=== PATIENT | female | born 1960 | race Caucasian/White ===

== ENCOUNTER 2016-11-15 08:31 | Day surgery (SDC) | payer OTHER ==
[~2016-11-15] VITALS: Ht 167.6 cm; Wt 151.0 kg
[~2016-11-15 08:31] MED LIST: ALPRAZOLAM0.5 MG PO; ALPRAZOLAM1 MG PO; ATORVASTATIN CA10 MG PO; BUPROPION XL300 MG PO; CARVEDILOL3.125 MG PO; CELEBREX200 MG PO; CELECOXIB200 MG PO; ENDOCET 5-3251 EACH PO; FERROUS SULFAT325 MG PO; FLONASE16 G1 BOTH NARES; HYZAAR 100-21 TABLET PO; LEVAQUIN750 MG PO; LIPITOR10 MG PO; LOSARTAN-HCTZ1 EAC1 PO; LOVENOX40 MG/0.4 SC; MELOXICAM15 MG PO; METFORMIN HCL1000 MG PO; METFORMIN HCL500 MG PO; NORVASC2.5 MG PO; OMEPRAZOLE20 MG PO; OMEPRAZOLE40 M1 PO; PAROXETINE HCL40 MG PO; PAXIL40 MG PO; PRILOSEC40 MG PO; PROPRANOLOL HCL60 M1 PO; SENNA PLUS TAB1 EACH PO; ULTRAM50 MG PO; VOLTAREN 1% GE100 GM TP; XANAX0.5 MG PO
[2016-11-15 09:45] LABS: POINT-OF-CARE METER ID UU13113696
[2016-11-15 15:47] LABS: POINT-OF-CARE METER ID UU13113819
[2016-11-15 20:30] VITALS: BP 135/68
[2016-11-15 23:40] VITALS: BP 126/57
[2016-11-16 03:30] VITALS: BP 147/66
[2016-11-16 06:26] LABS: EOSINOPHIL (%) 2.9 % (0-5); EOSINOPHIL COUNT 0.2 K/uL (0-0.3); HEMATOCRIT 33.3 % (36.0-46.0); IMMATURE GRANULOCYTE (%) 0.4 % (0.0-0.7); LYMPHOCYTE COUNT 2.3 K/uL (1.0-2.8); MCH 25.7 PG (29.0-34.0); MCHC 31.2 G/DL (30.0-36.0); MCV 82.2 FL (83-99); MEAN PLAT.VOLUME 9.7 uM^3 (9.5-12.4); MONOCYTE (%) 6.6 % (3-12); MONOCYTE COUNT 0.5 K/uL (0-0.8); NEUTROPHIL (%) 59.9 % (45-76); NEUTROPHIL COUNT 4.6 K/uL (1.8-6.4); PLATELET COUNT 191 K/uL (156-360); RBC DIS.WIDTH-CV 15.6 % (11.8-14.6); RBC DIS.WIDTH-SD 46.7 % (39-53); RED BLOOD COUNT 4.05 M/uL (3.80-5.20); WHITE BLOOD COUNT 7.6 K/uL (4.1-10.2)
[2016-11-16 06:51] LABS: ANION GAP 8 MEQ/L (2-14); CHLORIDE 101 MEQ/L (99-109); GFR ESTIMATE (CALCULATED) > 59 mL/min/; GLUCOSE 173 mg/dL (70-99); POTASSIUM 3.9 MEQ/L (3.7-5.4); SAMPLE HEMOLYSIS CHECK 0; SAMPLE ICTERIC CHECK 0; SAMPLE LIPEMIA CHECK 0; SODIUM 138 MEQ/L (136-147); UREA NITROGEN (BUN) 13 mg/dL (9-23)
[2016-11-16 08:30] VITALS: BP 117/58
[2016-11-16 12:00] VITALS: BP 125/56
[2016-11-16] MEDS ORDERED: LO-DOSE ASPIRIN81 M2 PO (13:16)
[2016-11-16] MEDS ORDERED: EFFIENT10 MG PO (13:16)
== END 2016-11-16 14:27 | disposition home or self-care (01) ==
LOC: CATH 08:31 → 2SOUTH 12:15 → 4EAST 12:15 → 2SOUTH 12:15 → 4EAST 20:24
PROVIDERS: Internal Medicine Cardiovascular Disease
DX: I25.10 Atherosclerotic heart disease of native coronary artery without angina pectoris (principal); I25.84 Coronary atherosclerosis due to calcified coronary lesion; E11.9 Type 2 diabetes mellitus without complications; I10 Essential (primary) hypertension; E78.5 Hyperlipidemia, unspecified; E66.9 Obesity, unspecified; Z68.43 Body mass index [BMI] 50.0-59.9, adult; G47.33 Obstructive sleep apnea (adult) (pediatric); Z79.84 Long term (current) use of oral hypoglycemic drugs; Z91.09 Other allergy status, other than to drugs and biological substances; Z87.891 Personal history of nicotine dependence; Z96.651 Presence of right artificial knee joint; Z82.49 Family history of ischemic heart disease and other diseases of the circulatory system
CPT/HCPCS: 80048; 82948; 85025; 85347; 93005; C1725; C1769; C1874; C1887; G0378; J0153; J1644; J2250; J3010; J7050

== ENCOUNTER 2018-03-17 11:52 | Observation (INO) | payer OTHER ==
[~2018-03-17] VITALS: Ht 167.6 cm; Wt 130.5 kg
[~2018-03-17 11:52] MED LIST changes: -CARVEDILOL3.125 MG PO; +COREG6.25 M1 PO; +EFFIENT10 MG PO; +LO-DOSE ASPIRIN81 M2 PO
[2018-03-17 12:54] LABS: HEMATOCRIT 34.9 % (36.0-46.0); HEMOGLOBIN 11.1 G/DL (11.9-15.5); MCH 26.2 PG (29.0-34.0); MCHC 31.8 G/DL (30.0-36.0); MCV 82.5 FL (83-99); PLATELET COUNT 217 K/uL (156-360); RBC DIS.WIDTH-CV 14.2 % (11.8-14.6); RBC DIS.WIDTH-SD 42.5 % (39-53); RED BLOOD COUNT 4.23 M/uL (3.80-5.20); WHITE BLOOD COUNT 8.4 K/uL (4.1-10.2)
[2018-03-17 13:06] LABS: CHLORIDE 102 mEq/L (99-109); POTASSIUM 3.7 mEq/L (3.7-5.4); SODIUM 141 mEq/L (136-147)
[2018-03-17 13:07] LABS: GLUCOSE 110 mg/dL (70-99)
[2018-03-17 13:11] LABS: CREATININE 0.8 mg/dL (0.6-1.3); GFR ESTIMATE (CALCULATED) > 59 mL/min/
[2018-03-17 13:12] LABS: UREA NITROGEN (BUN) 14 mg/dL (9-23)
[2018-03-17 13:15] LABS: TROP-I INTERPRETATION NEGATIVE; TROPONIN-I < 0.01 ng/mL (0.0-0.30)
[2018-03-17] MEDS ORDERED: ASPIRIN325 MG PO (14:59)
[2018-03-17] MEDS ORDERED: TRAMADOL HCL50 MG PO (15:04)
[2018-03-17] MEDS ORDERED: PHENTERMINE HCL30 MG PO (15:05)
[2018-03-17] MEDS ORDERED: OZEMPIC0.25 MG/0. SC (15:06)
[2018-03-17] MEDS ORDERED: K-DUR20 MEQ PO (15:07)
[2018-03-17] MEDS ORDERED: LYRICA50 MG PO (15:07)
[2018-03-17] MEDS ORDERED: TOVIAZ8 MG PO (15:07)
[2018-03-17] MEDS ORDERED: PAIN & FEVER500 MG PO (15:28)
[2018-03-17 15:44] VITALS: BP 119/59
[2018-03-17 15:53] LABS: HDL CHOLESTEROL 40 MG/DL (Desirable>=50); LDL CHOLESTEROL 111 mg/dL (Desirable<100); NON-HDL CHOLESTEROL 134 mg/dL (Desirable<160); TOTAL CHOLESTEROL 174 mg/dL (Desirable<200); TRIGLYCERIDES 115 MG/DL (Normal: <150)
[2018-03-17 18:40] LABS: TROP-I INTERPRETATION NEGATIVE; TROPONIN-I < 0.01 ng/mL (0.0-0.30)
[2018-03-17 20:00] VITALS: BP 110/74
[2018-03-18 00:27] VITALS: BP 108/56
[2018-03-18 01:49] LABS: TROP-I INTERPRETATION NEGATIVE; TROPONIN-I 0.01 ng/mL (0.0-0.30)
[2018-03-18 03:50] VITALS: BP 101/53
[2018-03-18 07:50] VITALS: BP 119/56
[2018-03-18] MEDS ORDERED: ATORVASTATIN CA40 MG PO (08:27)
== END 2018-03-18 11:01 | disposition home or self-care (01) ==
LOC: EME 11:52 → EDOF 14:07 → 4SOUTH 14:07 → EDOF 14:07 → ENRESERV 14:10 → 4SOUTH 15:34
PROVIDERS: Emergency Medicine; Hospitalist
DX: R07.9 Chest pain, unspecified (principal); I25.10 Atherosclerotic heart disease of native coronary artery without angina pectoris; Z95.5 Presence of coronary angioplasty implant and graft; E78.5 Hyperlipidemia, unspecified; I10 Essential (primary) hypertension; E11.9 Type 2 diabetes mellitus without complications; G47.33 Obstructive sleep apnea (adult) (pediatric); M25.512 Pain in left shoulder; R20.2 Paresthesia of skin; F41.9 Anxiety disorder, unspecified; Z82.49 Family history of ischemic heart disease and other diseases of the circulatory system; Z91.048 Other nonmedicinal substance allergy status; Z79.82 Long term (current) use of aspirin; Z79.84 Long term (current) use of oral hypoglycemic drugs
CPT/HCPCS: 71045; 80048; 80061; 84484; 85027; 85379; 93005; 99281; 99284; G0378; J1650

== ENCOUNTER 2018-04-03 08:23 | Day surgery (SDC) | payer OTHER ==
[~2018-04-03] VITALS: Ht 167.6 cm; Wt 127.0 kg
[~2018-04-03 08:23] MED LIST changes: +ASPIRIN325 MG PO; +ATORVASTATIN CA40 MG PO; +FUROSEMIDE20 MG PO; +K-DUR20 MEQ PO; +LYRICA50 MG PO; +OZEMPIC0.25 MG/0. SC; +PAIN & FEVER500 MG PO; +PHENTERMINE HCL30 MG PO; +TOVIAZ8 MG PO; +TRAMADOL HCL50 MG PO
== END 2018-04-03 15:00 | disposition home or self-care (01) ==
LOC: CATH 08:23
PROVIDERS: Internal Medicine Cardiovascular Disease
DX: I25.10 Atherosclerotic heart disease of native coronary artery without angina pectoris (principal); Z95.5 Presence of coronary angioplasty implant and graft; I10 Essential (primary) hypertension; E11.9 Type 2 diabetes mellitus without complications; G47.33 Obstructive sleep apnea (adult) (pediatric); E78.5 Hyperlipidemia, unspecified; E66.01 Morbid (severe) obesity due to excess calories; Z68.42 Body mass index [BMI] 45.0-49.9, adult; Z79.84 Long term (current) use of oral hypoglycemic drugs
CPT/HCPCS: 82948; C1769; C1887; J1644; J2250; J3010; J7040